=== PATIENT | female | born 1985 | race Caucasian/White ===

== ENCOUNTER 2016-04-29 18:31 | Emergency (ER) | payer OTHER ==
[2016-04-29 18:45] VITALS: BP 149/81; PULSE 71; RESP 18; TEMP 98.2
--- NOTE | 2016-04-29 18:55 | ED ---
Lower Extremity Injury HPI - General Chief Complaint: Extremity Injury, Lower Stated Complaint: RT ANKLE INJURY - [facility] Time Seen by Provider: 04/29/16 18:41 Source: patient, RN notes reviewed Mode of arrival: ambulatory Limitations: no limitations - History of Present Illness Initial Comments: Patient is a 30-year-old female since emergency room for evaluation of right ankle pain. Patient states that she was at work yesterday and twisted her ankle. Patient states today the lateral portion of her ankle began swelling. Patient states only having 1 out of 10 pain. Patient states she was told to come here via her employer. Patient denies numbness or tingling in her toes. Patient states pain is primarily on the top of her foot that radiates to the lateral portion of her ankle. Patient denies any previous injuries to her ankle or foot. Patient denies taking anything for pain. Patient states pain is worse when she walks or puts weight on her right leg. Patient denies any other injuries during incident. - Related Data Previous Rx's Medication Instructions Recorded Cyclobenzaprine [Flexeril] 10 mg PO TID #20 tab 12/15/15 Ibuprofen [Motrin] 600 mg PO Q6HR PRN #40 day 12/15/15 Allergies Allergy/AdvReac Type Severity Reaction Status Date / Time No Known Allergies Allergy Verified 12/15/15 21:23 Review of Systems ROS Statement: Those systems with pertinent positive or pertinent negative responses have been documented in the HPI. ROS Other: All systems not noted in ROS Statement are negative. Past Medical History Past Medical History: No Reported History History of Any Multi-Drug Resistant Organisms: None Reported Past Surgical History: Ear Surgery Past Psychological History: No Psychological Hx Reported Smoking Status: Current every day smoker Past Alcohol Use History: None Reported, Occasional Past Drug Use History: None Reported General Exam - General Exam Comments Initial Comments: Sitting in exam room in no acute distress. Limitations: no limitations General appearance: alert, in no apparent distress Head exam: Present: atraumatic, normocephalic, normal inspection Eye exam: Present: normal appearance ENT exam: Present: normal exam Neck exam: Present: normal inspection Respiratory exam: Present: normal lung sounds bilaterally. Absent: respiratory distress Cardiovascular Exam: Present: regular rate, normal rhythm, normal heart sounds Right Ankle exam: Present: full ROM, tenderness (Mild tenderness on palpating over the lateral malleolus), swelling (Lateral malleolus) Foot/Toe exam: Present: full ROM, tenderness (Dorsal portion of the foot along the first metatarsal bone) Neurovascular tendon exam: Present: no vascular compromise. Absent: pulse deficit (2+ dorsal pedal and posterior tibial pulses), abnormal cap refill ( Capillary refill less than 2 seconds) Gait: observed and normal Back exam: Present: normal inspection Neurological exam: Present: alert, oriented X3, CN II-XII intact, normal gait Psychiatric exam: Present: normal affect, normal mood Skin exam: Present: warm, dry, intact, normal color. Absent: rash Course Vital Signs 04/29/16 18:40 Temperature 98.2 F Pulse Rate 71 Respiratory 18 Rate Blood Pressure 149/81 O2 Sat by Pulse 98 Oximetry Medical Decision Making - Medical Decision Making Patient is a 30-year-old female presents to the emergency room for evaluation of right ankle pain. Right ankle/foot x-ray shows no acute fractures or dislocations. Patient placed in an ankle stirrup advised to follow-up with primary care provider symptoms are not improving in 7-10 days. Patient states she understands everything that was discussed with her. Return parameters discussed. - Radiology Data Radiology results: report reviewed, image reviewed Disposition Clinical Impression: Right ankle sprain Disposition: HOME SELF-CARE Condition: Good Instructions: Ankle Sprain (ED) Additional Instructions: Rest, elevate and ice on and off for 10-15 minutes for the next 24-48 hours. Take Tylenol or Motrin as needed for pain. Please follow up with primary care provider in 7-10 days if symptoms are not improving. If new symptoms develop or symptoms worsen, please return to the ER. Referrals: Miko Webster MD [Primary Care Provider] - 1-2 days Time of Disposition: 19:27
--- NOTE | 2016-04-29 19:26 | XR ---
Right ankle and right foot HISTORY: Trauma and pain 3 views of the right ankle and right foot correlated to right foot same date Bone mineralization, joint spaces and alignment are maintained. IMPRESSION: No fracture or dislocation of the ankle or foot.
== END 2016-04-29 19:30 | disposition home or self-care (01) ==
LOC: EC 18:31
DX: S93.401A Sprain of unspecified ligament of right ankle, initial encounter (principal); X50.1XXA Overexertion from prolonged static or awkward postures, initial encounter; F17.210 Nicotine dependence, cigarettes, uncomplicated
CPT/HCPCS: 99283

== ENCOUNTER 2016-06-30 09:50 | Day surgery (SDC) | payer BC ==
[2016-06-28 16:31] VITALS: BMI 26.9
--- NOTE | 2016-06-30 06:36 | HP ---
DATE OF ADMISSION: Chief complaint is chronic tonsillitis. HISTORY OF PRESENT ILLNESS: This patient is a 30-year-old female who was recently seen in my office for evaluation of recurrent episodes of tonsillitis including streptococcal tonsillitis despite treatment with various types of oral antibiotics. In addition to this, the patient was noted to smoke approximately 1/2 pack of cigarettes per day and has been advised to quit for obvious health reasons. At the time that she was seen in the office, clinical examination of oropharynx reveals 4+ cryptic tonsils filled with white cheesy debris. The patient was advised to stop smoking at least one week prior to surgery because it is recommended that she undergo a tonsillectomy under general anesthesia. Past medical history reveals that the patient has no known allergies to medications. Her current medications include Paxil, acyclovir, and Prilosec. She is 2 para, 2 , 0 miscarriage. Previous surgeries include colonoscopy and tympanoplasty x2. Review of systems is positive with respect to the gastrointestinal system in that the patient is known to have gastroesophageal reflux disorder. The remainder of review of systems is unremarkable. PHYSICAL EXAMINATION: This patient is a 30-year-old female who is alert and cooperative. HEENT EXAMINATION: Patient is normocephalic. Tympanic membranes are normal. Middle ear spaces are free of any fluid or infection. Pupils equal, round, and reactive to light and accommodation. Extraocular movements are within normal limits. Intranasal examination reveals moderate septal deviation with compensatory hypertrophy of the inferior turbinates and a moderate amount of mucus on the mucous membranes and draining down the posterior pharynx. Examination of the oropharynx reveals 4+ tonsillar hypertrophy with very prominent tonsillar crypts filled with white cheesy debris. Cranial nerves 2 through 12 and the remainder of the head and neck exam are all within normal limits. CHEST/CARDIOVASCULAR: Both lung reina are clear to percussion and auscultation. The patient is in regular sinus rhythm. S1 and S2 are present without evidence of any murmurs, S3s or S4s. Peripheral pulses are bilaterally symmetrical and within normal limits. ABDOMEN: There is no evidence of any masses, megaly or tenderness. The abdomen is soft. Skin is unremarkable. Musculoskeletal and neurological are within normal limits. PELVIC RECTAL EXAM: The pelvic rectal exam is deferred at this time because the patient has this done a regular basis at her family physician's office. The remainder of physical exam is unremarkable. IMPRESSION: Chronic tonsillitis. PLAN: The patient is scheduled undergo a tonsillectomy under general anesthesia in a.m. ATTENTION RNS IN THE PRESURGICAL AREA: This patient has orders to receive 1000 mg of Ofirmev IV and also 2 million units of aqueous penicillin G IV, both to be given once an intravenous line has been established. No other preoperative prophylactic antibiotics have been ordered by me and if any different antibiotics are sent to the presurgical area from pharmacy they should be returned and the patient's account should be credited appropriately. I have explained the operation/procedure to the patient, including the risks, benefits, side effects, alternative therapies (including not receiving the proposed treatment or service), the likelihood of the patient achieving his/her goals, and potential recuperation problems for the procedure/sedation/analgesia, as well as any blood products, if indicated. I also explained to the patient the risks, benefits, and side effects of the alternatives, as well as the risks related to not receiving the proposed procedure, care treatment or services.
[~2016-06-30 09:50] MED LIST: DEXAMETHASONE SOD PHOSPHATE 10 MG/ML 1 ML VIAL IV ONE; HYDROmorphone 1 MG/ML 1 ML SYRINGE IVP PRN; LACTATED RINGERS 1,000 ML IV SCH; MIDAZOLAM 2 MG/2 ML VIAL IV PRN; NALOXONE 0.4 MG/ML 1 ML VIAL IV PRN; ONDANSETRON 4 MG/2 ML VIAL IVP ONE; Pre Op ABX Message 1 EACH MISC MISCELLANE ONE; SCOPOLAMINE 1.5MG/72HR PATCH TRANSDERM ONE
[2016-06-30] MEDS ORDERED: PENICILLIN G POTASSIUM 1,000,000 UNIT in DEXTROSE 5% IN WATER 100 ML IVPB ONE ×2 (11:00)
[2016-06-30] MEDS ORDERED: ACETAMINOPHEN IV (For NPO) 1,000 MG in EMPTY BAG 1 BAG IVPB ONE (11:00)
[2016-06-30] MEDS ORDERED: LIDOCAINE 1% INJ 10MG/ML (20 ML MDV) ONE (11:10)
[2016-06-30] MEDS ORDERED: GLYCOPYRROLATE 0.2 MG/ML 2 ML VIAL ONE (11:10)
[2016-06-30] MEDS ORDERED: fentaNYL (PF) 50 MCG/ML 2 ML AMP ONE (11:10)
[2016-06-30] MEDS ORDERED: PROPOFOL 10 MG/ML 20 ML VIAL IV ONE (11:10)
[2016-06-30] MEDS ORDERED: SUCCINYLCHOLINE CHLORIDE 100 MG/5 ML SYR IV ONE (11:10)
[2016-06-30] MEDS ORDERED: MIDAZOLAM 2 MG/2 ML VIAL ONE (11:10)
[2016-06-30] MEDS ORDERED: ROCURONIUM BROMIDE 10 MG/ML 10 ML VIAL IV ONE (11:10)
[2016-06-30] MEDS ORDERED: NEOSTIGMINE 1 MG/ML 10 ML VIAL ONE (11:10)
[2016-06-30] MEDS ORDERED: BUPIVACAINE (PF) 0.5% 30 ML VIAL SQ ONE ×3 (11:31)
[2016-06-30] MEDS ORDERED: LACTATED RINGERS 1,000 ML IV ONE (12:04)
[2016-06-30] MEDS ORDERED: ONDANSETRON 4 MG/2 ML VIAL IVP PRN (12:30)
[2016-06-30] MEDS ORDERED: HYDROmorphone PCA 5 MG/25 ML SYRINGE IV PRN (12:30)
[2016-06-30] MEDS ORDERED: LACTATED RINGERS 1,000 ML IV SCH (12:35)
[2016-06-30 12:54] VITALS: TEMP 97.4
[2016-06-30 14:14] VITALS: RESP 16
[2016-06-30 15:01] VITALS: PULSE 99
[2016-06-30 15:13] VITALS: BP 148/90
--- NOTE | 2016-07-02 15:58 | OP ---
DATE OF SERVICE: SURGEON: GAGAN TODD MD [employer] MECH[employer]IC HELPER: PREOPERATIVE DIAGNOSIS: Chronic tonsillitis. POSTOPERATIVE DIAGNOSIS: Chronic tonsillitis. OPERATION: Tonsillectomy. ANESTHESIA: General. ESTIMATED BLOOD LOSS: Less than 50 mL. SPECIMENS REMOVED: COMPLICATIONS: None. OPERATIVE FINDINGS: OPERATIVE PROCEDURE: The patient was placed on the operating table in the supine position, after uneventful induction and endotracheal intubation, satisfactory general anesthesia was obtained. Next, the #3 Jerome-Madhu mouth gag was introduced into the oropharynx, expanded and suspended from a Cespedes stand. Following this, both peritonsillar areas were injected with approximately 10 mL of 0.25% Marcaine solution without epinephrine. Following this, attention was directed toward the right tonsil which was grasped with the tonsillar forceps and pulled medially. The sickle knife was used to make an incision 4 mm lateral to the anterior pillar, beginning at the superior pole and working down to the inferior pole with a similar incision being carried out parallel to the posterior pillar. The angle scissors and the serrated Fly dissector were used to dissect the tonsil away from the tonsillar fossa. The tonsil itself was excised en toto using the tonsillar snare. Hemostasis was obtained using suction cautery. A sponge was placed in the empty tonsillar fossa. Attention was then directed to the left tonsil where the same procedure was carried out, with the left tonsil being grasped with the tonsillar forceps and pulled medially. The sickle knife was used to make an incision 4 mm lateral to the anterior pillar beginning at the superior pole and working down to the inferior pole with a similar incision being carried out parallel to the posterior pillar. Once again, the angle scissors and the serrated Fly dissector were used to dissect the tonsil away from the tonsillar fossa and the tonsil itself was excised en toto using the tonsillar snare. Hemostasis was obtained using suction cautery. A sponge was placed in the empty tonsillar fossa. The mouth gag was relaxed for a period of approximately 7 minutes and upon re-expanding and removing all sponges, no evidence of any active bleeding was noted. At this point, the procedure was terminated. There were no intraoperative complications. The patient tolerated the procedure well and was returned to the recovery room in satisfactory condition.
== END 2016-06-30 15:19 | disposition home or self-care (01) ==
LOC: OR 09:50
PROVIDERS: ATTEND Otolaryngology
DX: J35.01 Chronic tonsillitis (principal); K21.9 Gastro-esophageal reflux disease without esophagitis; F17.210 Nicotine dependence, cigarettes, uncomplicated; Z79.2 Long term (current) use of antibiotics; Z79.891 Long term (current) use of opiate analgesic; Z79.899 Other long term (current) drug therapy
CPT/HCPCS: 42826; 81025; 88304; J2250; J1100; J2710; J2405; J2001; J3010; J0131; J0330; J2704